=== PATIENT | female | born 1940 | race Caucasian/White ===

== ENCOUNTER → 2021-10-18 15:59 | Outpatient (BNVA) | payer MEDICARE, SELFPAY | PROVIDERS: PCP Nurse Practitioner Family; Visit Provider Nurse Practitioner Family | DX: M25.561 Pain in right knee (principal); J32.0 Chronic maxillary sinusitis; R05.9 Cough, unspecified | CPT/HCPCS: 71046; 73562; 80053 ==

== ENCOUNTER → 2022-11-14 11:48 | Outpatient (BNVA) | payer MEDICARE, SELFPAY | PROVIDERS: PCP Nurse Practitioner Family; Visit Provider Nurse Practitioner Family | DX: R60.9 Edema, unspecified (principal); Z13.6 Encounter for screening for cardiovascular disorders; I48.91 Unspecified atrial fibrillation | CPT/HCPCS: 80053; 80061; 84443 ==

== ENCOUNTER → 2022-11-28 10:47 | Outpatient (BNVA) | payer MEDICARE, SELFPAY | PROVIDERS: PCP Nurse Practitioner Family; Visit Provider Nurse Practitioner Family | DX: I48.91 Unspecified atrial fibrillation (principal) | CPT/HCPCS: 80053 ==

== ENCOUNTER → 2024-02-20 11:48 | Outpatient (BNVA) | payer MEDICARE, SELFPAY | PROVIDERS: PCP Nurse Practitioner Family; Visit Provider Nurse Practitioner Family | DX: I10 Essential (primary) hypertension (principal); I50.32 Chronic diastolic (congestive) heart failure; E78.2 Mixed hyperlipidemia; R60.9 Edema, unspecified | CPT/HCPCS: 80053; 80061; 83880; 84443; 85025 ==